=== PATIENT | female | born 1960 | race Two or more races ===

== ENCOUNTER 2022-04-11 09:20 | Outpatient (CLI) | payer OTHER | END 2022-04-11 09:21 | disposition home or self-care (01) | LOC: LAB 09:20 | PROVIDERS: ATTEND Internal Medicine | DX: U07.1 COVID-19 (principal); B34.1 Enterovirus infection, unspecified ==

== ENCOUNTER 2022-04-12 07:12 | Outpatient (CLI) | payer OTHER | END 2022-04-12 07:18 | disposition home or self-care (01) | LOC: NUCLEAR 07:12 | PROVIDERS: ATTEND Internal Medicine Cardiovascular Disease | DX: I20.8 Other forms of angina pectoris (principal) | CPT/HCPCS: 78452; 93017; A9500 ==